=== PATIENT | male | born 1955 | race Caucasian/White ===

== ENCOUNTER 2022-09-28 11:20 | Emergency (ER) | payer OTHER, SELFPAY ==
[2022-09-28] VITALS (13 sets, daily range): BP systolic 124–150; BP diastolic 74–88; PULSE 60–78; RESP 11–19; TEMP 36–36.4; O2SAT 94–100; BMI 40.4
--- NOTE | 2022-09-28 11:21 | EKG12_ITS ---
Test Reason : POSS STROKE Blood Pressure : / mmHG Vent. Rate : 057 BPM Atrial Rate : 057 BPM P-R Int : 176 ms QRS Dur : 094 ms QT Int : 412 ms P-R-T Axes : -03 -14 152 degrees QTc Int : 401 ms Sinus bradycardia Nonspecific T wave abnormality Abnormal ECG Confirmed by YARELIS RAMEY, SARAI ([id number]), story editor CAMILLE GUTIERREZ ([id number]) on 09/30/2022 2:10:57 PM Referred By: Confirmed By:SARAI SANTOYO MD
--- NOTE | 2022-09-28 11:22 | CT_ITS ---
STUDY: CT BRAIN WITHOUT CONTRAST REASON FOR EXAM: Male, 66 years old. Neuro deficit, acute, stroke suspected RADIATION DOSAGE (If Supplied By Facility): CTDIvol = ( ) mGy, DLP = ( ) mGycm TECHNIQUE: Transaxial CT imaging of the brain was performed without administration of intravenous contrast material. Individualized dose optimization techniques were used for this CT. COMPARISON: No relevant priors. FINDINGS: Normal soft tissue structures. There is hyperostosis frontalis internus. Normal size ventricles and extra-axial spaces for the patient''s age. Normal white matter tracts of the cerebral hemispheres. Normal basal ganglia and thalami. Normal brainstem. Normal cerebellum. There is no intracranial hemorrhage. There are no findings of an acute ischemic infarction. Normal visualized paranasal sinuses. CT/STROKE Brain/Head without Cont IMPRESSION: Chronic involutional changes of the brain, no acute hemorrhage. N.B. : The above Results were Read Back by Heladio Reeys MD to Rosa Sorenson MD, and understanding confirmed on 09/28/2022 11:35:41 (ET). Electronically Signed: Heladio Reyes MD at 11:37 EDT ,
--- NOTE | 2022-09-28 11:34 | ED.RN ---
THIS RN CALLED [facility] AT 1121. [facility] TO CALL DR. BOWER AND MEET US ON [facility].
[2022-09-28 11:42] LABS: Absolute Lymphocyte Count 2.21 X10^3/uL (0.83-4.51); Absolute Neutrophil Count 5.4 X10^3/uL (2.0-7.7); Basophil# 0.06 X10^3/uL; Basophil% 0.7 % (0-1); Eosinophil# 0.15 X10^3/uL; Eosinophils% 1.8 % (0-5); Hematocrit 45.3 % (40-54); Hemoglobin 14.8 g/dL (13.0-16.5); Lymphocyte # 2.21 X10^3/ul (0.83-4.51); Mean Corp Hgb Conc 32.7 g/dL (32-36); Mean Corpuscular Hgb 29.1 pg (27.0-32.0); Mean Platelet Vol. 9.5 fl (6.2-12.0); Monocyte# 0.62 X10^3/uL; Monocyte% 7.3 % (0-10); NRBC Flagged by Analyzer 0 % (0-5); Neutrophil # 5.37 X10^3/uL (2.7-7.7); Neutrophil % 63.3 % (47-70); Platelet Count 188 K/mm3 (150-450); RBC Distribution Width CV 13.2 % (11.6-14.6); RBC Distribution Width SD 43.2 fl (35.1-43.9); Red Blood Count 5.09 M/mm3 (4.6-6.2); White Blood Count 8.5 K/mm3 (4.4-11.0)
--- NOTE | 2022-09-28 11:45 | ED.VIS.STROK ---
HPI History of Present Illness Chief Complaint: Stroke Alert Informant: patient Onset/Context/Timing Onset: Today Narrative Narrative: Patient presents via EMS from his eye doctor's visit with strokelike symptoms. He has a history of migraines and seizures. He states that he went to have his eyes checked today and the flashing lights and when the machines caused right-sided headache and right eye pain. He had some problems with slurred speech and right arm weakness. Symptoms occurred within 20 to 30 minutes of arrival to the ER. Patient was met in the ER bay and sent immediately to CT scan. [facility] Medical History Arthritis BPH (benign prostatic hyperplasia) Congestive heart failure (CHF) Depression Diabetes DVT (deep venous thrombosis) GERD (gastroesophageal reflux disease) Lumbar stenosis Migraine Raynauds disease Seizure Sleep apnea Stroke Subdural hematoma Allergy/AdvReac Type Severity Reaction Status Date / Time codeine Allergy Nausea Verified 09/28/22 11:46 Social History Smoking Status: Never smoker ROS ROS ED Constitutional Constitutional ED: Denies chills or fever(s) Eyes Eyes: Reports change in vision; Denies discharge from eye(s) ENT ENT ED: Denies discharge from eye(s), rhinorrhea or sore throat Cardiovascular Cardiovascular: Denies chest pain or palpitations Respiratory/Chest Respiratory/Chest: Denies cough or dyspnea Gastrointestinal Gastrointestinal: Denies abdominal pain, nausea or vomiting Genitourinary Genitourinary ED: Denies dysuria Musculoskeletal Musculoskeletal: Denies back pain or extremity pain Integumentary Denies Abrasions or rash Neurologic Neurologic: Denies headache(s) or weakness Psychiatric Psychiatric: Denies anxiety or depression Allergic/Immunologic Allergic/Immunologic ED: Denies lip swelling or urticaria EXAM Physical Exam Const Vital Signs: 09/28/22 11:35 09/28/22 11:38 09/28/22 11:42 Temperature Temperature Source Pulse Rate 67 64 Respiratory Rate 19 H 18 Blood Pressure 150/88 H 150/88 H Blood Pressure Mean 108 108 Pulse Ox 97 98 Oxygen Delivery Method Room Air Room Air Room Air 09/28/22 11:42 09/28/22 11:49 09/28/22 11:51 Temperature 96.8 F L Temperature Source Temporal Pulse Rate 60 60 61 Respiratory Rate 12 12 17 Blood Pressure 150/88 H 150/88 H 139/78 H Blood Pressure Mean 108 108 98 Pulse Ox 98 98 97 Oxygen Delivery Method Room Air Room Air Room Air 09/28/22 12:20 09/28/22 12:22 09/28/22 12:30 Temperature Temperature Source Pulse Rate 63 63 63 Respiratory Rate 11 L 13 15 Blood Pressure 134/74 H 134/74 H 124/82 H Blood Pressure Mean 94 94 96 Pulse Ox 98 94 95 Oxygen Delivery Method Room Air Room Air Room Air 09/28/22 13:27 09/28/22 13:00 09/28/22 13:37 Temperature Temperature Source Pulse Rate 65 64 62 Respiratory Rate 13 14 13 Blood Pressure 143/78 H 137/80 H Blood Pressure Mean 99 99 Pulse Ox 98 96 97 Oxygen Delivery Method Room Air Room Air Room Air 09/28/22 14:35 Temperature Temperature Source Pulse Rate 63 Respiratory Rate 12 Blood Pressure 127/75 H Blood Pressure Mean 92 Pulse Ox 97 Oxygen Delivery Method Room Air Positive well nourished and well developed General Appearance ED: well developed HEENT Reports moist mucous membranes Eyes PERRL and EOMs intact bilaterally Neck no lymphadenopathy Resp normal respiratory effort and clear to auscultation bilaterally Cardio no murmurs GI normal to inspection, nondistended, normoactive bowel sounds and soft to palpation Extremity normal to inspection Neuro Neuro Narrative: See NIH stroke alert. NIHSS NIHSS Initial: 1a Level of Consciousness: 0 1b LOC Questions (Score 2 if aphasic/stupor): 0 1c LOC Commands (Only score 1st attempt): 0 2 Best Gaze (If aphasic, use reflexive mvmts.): 0 3 Visual: 1 4 Facial Palsy: 0 5 Motor Arm Right (UN = amputation/fusion): 0 5 Motor Arm Left: 0 6 Motor Leg Right: 2 (Causes increased back and head pain when he attempts to lift his right leg.) 6 Motor Leg Left: 0 7 Limb ataxia (Only + if out of proportion): 0 8 Sensory (Aphasia/stupor=0 or 1, coma=2): 0 9 Best Language: 0 10 Dysarthria (mute, coma=2, intubated=UN): 0 11 Extinction and Inattention (only scored if +): 0 Total Score: 3 MDM MDM MDM Narrative Medical decision making narrative: Patient sent immediately to CT scan for noncontrast head CT. Labwork obtained to evaluate for leukocytosis, anemia, and electrolyte derangement. EKG obtained to evaluate for cardiac arrhythmia/ischemia. Chest x-ray obtained to evaluate for acute lung pathology, cardiac size, or mediastinal abnormality. History & Record Review Discussion w/independent historian: EMS personnel and Patient Lab Data Attestation: I reviewed the patient's lab results. Labs: Laboratory Results - last 24 hr 09/28/22 09/28/22 09/28/22 11:35 11:35 11:35 WBC 8.5 RBC 5.09 Hgb 14.8 Hct 45.3 MCV 89.0 MCH 29.1 MCHC 32.7 RDW Std Deviation 43.2 RDW Coeff of Pedro 13.2 Plt Count 188 MPV 9.5 Immature Gran % (Auto) 0.900 Neut % (Auto) 63.3 Lymph % (Auto) 26.0 Maries % (Auto) 7.3 Eos % (Auto) 1.8 Baso % (Auto) 0.7 Absolute Neuts (auto) 5.4 Absolute Lymphs (auto) 2.21 Nucleated RBC % 0 PT 13.2 INR 1.0 APTT 31.6 Sodium 134 L Potassium 4.9 Chloride 99 Carbon Dioxide 28.0 Anion Gap 7 BUN 17 Creatinine 1.17 Estim Creat Clear Calc 67.04 Est GFR (MDRD) Af Amer 80 Est GFR (MDRD) Non-Af 66 BUN/Creatinine Ratio 14.5 Glucose 217 H Calcium 9.6 Troponin I High Sens 9 Radiography Chest X-Ray - ED: 1 View, Chronic Changes and No Infiltrates Diagnostic Testing: Clinical Impression(s) from Imaging Studies Brain CT 09/28/22 11:22 IMPRESSION: Chronic involutional changes of the brain, no acute hemorrhage. N.B. : The above Results were Read Back by Heladio Reyes MD to Rosa Sorenson MD, and understanding confirmed on 09/28/2022 11:35:41 (ET). Electronically Signed: Heladio Reyes MD at 11:37 EDT , ADDENDUM: 09/28/22 1144 IMPRESSION: Chronic involutional changes of the brain, no acute hemorrhage. N.B. : The above Results were Read Back by Heladio Reyes MD to oRsa Sorenson MD, and understanding confirmed on 09/28/2022 11:35:41 (ET). Electronically Signed: Heladio Reyes MD at 11:37 EDT , Chest X-Ray 09/28/22 11:50 IMPRESSION: No acute pulmonary process Electronically Signed: Heladio Reyes MD at 13:12 EDT , Head/Neck CTA 09/28/22 12:54 IMPRESSION: Patent vasculature with no significant stenosis. Electronically Signed: Isai Zhang MD at 13:53 EDT , EKG Initial EKG: Attestation: I personally reviewed and interpreted this EKG as follows: Interpretation: Sinus Bradycardia (Sinus bradycardia 57 bpm. Nonspecific T wave flattening noted. No acute ST change.) Treatment and Re-Evaluation Narrative: Patient was evaluated for acute stroke versus migraine versus seizure. Noncontrast head CT was unremarkable. Neurologist from [facility] beamed in and evaluated the patient virtually. He feels the patient should be treated for migraine and does not need TNK at this time. CBC is unremarkable. Chemistry studies largely unremarkable. His glucose is 217. Sodium was slightly low at 134. Coags are normal. Troponin is normal at 9. Patient given a dose of Toradol and Benadryl. CTA of the head and neck obtained and this is read as normal study. At this time patient reports his headache is significantly improved. He has no focal neurologic deficits and will be discharged home with his . Discharge Plan Triage Chief Complaint: Stroke Alert ED Provider: Rosa Sorenson Dx/Rx/DC Orders Clinical Impression: Migraine Instructions: ED, Migraine (Classical) Primary Care Provider: Care Physician,No Primary Referrals: Care Physician,No Primary [Primary Care Provider] - Activity Restrictions/Additional Instructions: Follow-up with your physician within the next 5 to 7 days. Please return for any recurrent or concerning symptoms. Disposition Disposition: Home, Self Care
--- NOTE | 2022-09-28 11:50 | RAD_ITS ---
STUDY: X-RAY CHEST REASON FOR EXAM: Male, 66 years old. Neuro deficit, acute, stroke suspected TECHNIQUE: Single AP portable view of the chest. COMPARISON: None. FINDINGS: The lungs are clear and expanded. There is no demonstrated pleural abnormality. Normal size heart. Normal mediastinum and kenneth. Normal visualized pulmonary arteries. Normal visualized aortic arch and descending thoracic aorta. There are diffuse degenerative changes of the visualized thoracic spine. Normal visualized ribs, clavicles, and shoulders. There is no demonstrated abnormality of the visualized soft tissue structures of the upper abdomen. RAD/Chest 1 View IMPRESSION: No acute pulmonary process Electronically Signed: Heladio Reyes MD at 13:12 EDT ,
[2022-09-28 11:53] LABS: Partial Thromboplast Time 31.6 Seconds (24.1-36.2); Prothrombin Time (Protime)PT. 13.2 SECONDS (11.7-14.9)
[2022-09-28 12:00] LABS: Anion Gap 7 (5-15); BUN 17 mg/dL (7-18); BUN/Creat Ratio 14.5 RATIO (10-20); Calcium,Total 9.6 mg/dL (8.5-10.1); Chloride 99 mmol/L (98-107); Creatinine, Serum 1.17 mg/dL (0.70-1.30); EST Glomerular Filtration Rate 66 mL/min (>60); Est Glom Filt Rate - Afr Amer 80 mL/min (>60); Estimated Creatinine Clearance 67.04 ml/min; Glucose 217 mg/dL (74-106); Potassium 4.9 mmol/L (3.5-5.1); Sodium Level 134 mmol/L (136-145); Troponin-I HS 9 pg/mL (3.0-78.0)
--- NOTE | 2022-09-28 12:54 | CT_ITS ---
INDICATION: stroke sx EXAMINATION: CTA head and neck with contrast. TECHNIQUE: Noncontrast axial images were obtained of the brain. Subsequently, routine carotid CT angiogram protocol was performed without and with IV contrast. In addition, images were obtained of the [place]. NASCET criteria using the distal ICAs for comparison were used for evaluation of stenoses. 3D reconstructions were reviewed. A radiation dose optimization technique was used for this scan. IV Contrast dosage and agent: COMPARISON: CT head without contrast from same day. FINDINGS: Noncontrast brain CT findings dictated separately. --CTA NECK: AORTIC ARCH AND BRANCHES: Normal anatomy, patent. RIGHT CCA: No occlusion, significant stenosis or dissection. RIGHT ICA: No occlusion, significant stenosis or dissection. LEFT CCA: No occlusion, significant stenosis or dissection. LEFT ICA: No occlusion, significant stenosis or dissection. RIGHT VERTEBRAL ARTERY: No occlusion, significant stenosis or dissection. LEFT VERTEBRAL ARTERY: No occlusion, significant stenosis or dissection. NECK SOFT TISSUES: Unremarkable. VISUALIZED LUNG APICES: Clear. BONES: Assessment limited due to angiography protocol. No obvious fracture or subluxation. Moderate multilevel degenerative changes of the spine. No destructive osseous lesions. --CTA HEAD: --Anterior circulation: ICAs: No significant stenosis at the intracranial/visualized segments. ACAs: No significant stenosis at the visualized segments. ACOM: No significant stenosis.. MCAs: No significant stenosis at the visualized segments. --Posterior circulation: PCOMs: No significant stenosis. digital hardware design engineer: No significant stenosis at the visualized segments. BASILAR ARTERY: No significant stenosis. VERTEBRAL ARTERIES: No significant stenosis at the intradural/visualized segments. No evidence of intracranial aneurysm or vascular malformation. CT/CTA Head AND Neck W/ Contrast IMPRESSION: Patent vasculature with no significant stenosis. Electronically Signed: Isai Zhang MD at 13:53 EDT ,
[2022-09-28] MEDS: Ketorolac 30 MG/ML Syringe IV (13:28)
[2022-09-28] MEDS: DiphenhydrAMINE 50 MG/ML Syringe 12.5 MG IV (13:29)
--- NOTE | 2022-09-28 13:39 | ED.RN ---
PER DR. ROBLES VERBAL ORDER, OKAY TO DISCONTINUE NIH CHECKS OF 1340.
--- NOTE | 2022-09-28 13:48 | ED.RN ---
THIS RN ATTEMPTED TO CALL LAURA GUILLERMO AT 1349. PHONE WENT STRAIGHT TO VOICEM[employer]. PT AWARE UNABLE TO UPDATE HER ON PT STATUS. LAURA GUILLERMO PHONE NUMBER [phone].
--- NOTE | 2022-09-28 14:01 | ED.RN ---
THIS RN TOOK CALL FROM LAURA GUILLERMO () ON PT CELLPHONE. UPDATED HER ON PT CARE AT 1402.
== END 2022-09-28 15:18 | disposition home or self-care (01) ==
PROVIDERS: Emergency Provider Emergency Medicine; Visit Provider Emergency Medicine
DX: G43.909 Migraine, unspecified, not intractable, without status migrainosus (principal); I50.9 Heart failure, unspecified; E11.9 Type 2 diabetes mellitus without complications; R47.81 Slurred speech
CPT/HCPCS: 70450; 70496; 70498; 71045; 80048; 84484; 85025; 85610; 85730; 93005; 96374; 96375; 99285; Q9967; A4216